=== PATIENT | male | born 1970 | race Two or more races ===

== ENCOUNTER 2018-11-28 15:41 | Outpatient (CLI) | payer OTHER ==
[~2018-11-28 15:41] MED LIST: PERCOCET 5/3251 TAB PO; POLY119PG PO; RECTICARE30 GM TP
== END 2018-11-28 15:49 | disposition home or self-care (01) ==
LOC: RAD 501 15:41
DX: M25.541 Pain in joints of right hand (principal); M25.562 Pain in left knee